=== PATIENT | female | born 1935 | race Caucasian/White ===

== ENCOUNTER 2017-02-09 21:21 | Inpatient (IN) | payer MEDICARE, BC ==
[~2017-02-09] VITALS: Ht 162.6 cm; Wt 61.4 kg
--- NOTE | ~2017-02-09 | CT71 ---
[facility] A Service of [facility] RADIOLOGY TEXT RESULTS PATIENT: OXANA DUNLAP LOCATION: [facility] 341- : 35 UNIT #: [id number] AGE: [address]: Carlos Enrique Aggarwal MD SEX: F ORDER DR: [id number] [facility]. [place], [place] [address] [id number] I MR#: [id number] #: [id number] NAME: OXANA DUNLAP : 1935 SEX: F STUDY DATE/TIME: 02/09/2017 23:28 UNIT: C3A PCU ROOM: 341 STUDY DESCRIPTION: CT Head Wo Contrast Attending Physician: Carlos Enrique Aggarwal M.D. Ordering Physician: Lobo Butler D.O. Primary Care Physician: Reji Muhammad M.D. MEDICAL IMAGING REPORT This report is preliminary unless electronic signature is present EXAM Head CT without. HISTORY Syncope, confusion and hypertension and headache. Symptom onset today. COMMENT Routine noncontrast head CT is reviewed. There is comparison from 03/31/2016. This CT exam was performed with one or more of the following radiation dose reduction techniques: automatic exposure control, adjustment of mA and/or kV according to patient size, and iterative reconstruction. There is no displaced calvarial fracture. The mastoid air cells are clear where visualized and there is only mild mucosal thickening in the paranasal sinuses. There is generalized atrophy. There is no extraaxial fluid collection or acute intracranial hemorrhage. There is moderate white matter low-attenuation most confluent in the periventricular white matter nonspecific, but probably due to small vessel disease. Prominent vascular calcifications at the base of the brain. Patient has had cataract surgery bilaterally. No acute cortical infarct is suspected, but if this is of clinical concern followup imaging is recommended preferably with MRI if the patient is a candidate. Findings not significantly changed from prior study. IMPRESSION 1. No acute intracranial abnormality suspected, but if there is clinical concern for acute CVA, followup imaging is recommended preferably with MRI. 2. Atrophy and probable sequelae of small vessel disease. [facility] A Service of [facility] RADIOLOGY TEXT RESULTS PATIENT: OXANA DUNLAP LOCATION: A 341-01 : 35 UNIT #: [id number] AGE: [address]: Carlos Enrique Aggarwal MD SEX: F ORDER DR: Dictated by... Jasmin Greenberg M.D. THIS IS AN ELECTRONICALLY VERIFIED REPORT Jasmin Greenberg M.D. at 02/10/2017 11:00 AM Irma TD: 02/10/2017 09:22 JOB #: [id number] MEDICAL IMAGING REPORT Page 1 of 1 COPY
--- NOTE | ~2017-02-09 | HP ---
Unit #: [id number] #: [id number] Patient: OXANA DUNLAP [id number] [facility]. [place], [place] [address] [id number] I MR#: [id number] NAME: OXANA DUNLAP ROOM: 341 Age: 81 Sex: F Admission Date: 02/10/2017 : 1935 Attending Physician: Priscilla Cornelius M.D. Primary Care Physician: Reji Muhammad M.D. HISTORY AND PHYSICAL CHIEF COMPLAINT Possible syncope with UTI and hypokalemia. HISTORY This pleasant 81-year-old female with CAD, hypertension, mild dementia, is admitted for possible syncope. The patient does not recall what occurred earlier. I'm told by the ER physician that patient lives alone, had a syncopal episode, she was able to press possibly her medical alert button for help. She was brought to this emergency department last evening with a blood pressure of 223/118, which has improved on its own. She denies chest pain or shortness of breath. Does note some occasional dysuria. Her urinalysis shows significant pyuria. Labs are also notable for potassium of 2.7. In the ER she was treated with 1 g of Rocephin and one run of potassium chloride. Denies complaints at present. PAST MEDICAL HISTORY 1. CAD, status post PCI and stent. Echo 2013 ejection fraction 50% to 55% with mild MR, impaired left ventricular relaxation. 2. Essential hypertension. 3. Hyperlipidemia. 4. Peptic ulcer disease requiring clip and biopsy 2013. 5. Anxiety. 6. GERD. 7. Mild dementia. 8. Cataract extraction. 9. Tonsillectomy. ALLERGIES No known drug allergies. HOME MEDICATIONS Namenda XR 28 mg daily; BuSpar 10 mg b.i.d.; Lopressor 50 mg b.i.d.; Zocor 20 mg daily; omeprazole 40 mg daily; Plavix 75 mg daily; Imdur 60 mg daily; Prinivil 40 mg daily; Aricept 10 mg daily; p.r.n. meclizine; and Ultram. FAMILY HISTORY Noncontributory given patient's age. SOCIAL HISTORY The patient lives alone. Stopped smoking about 7 years ago, no longer drinks alcohol. Unit #: [id number] #: [id number] Patient: OXANA DUNLAP REVIEW OF SYSTEMS Somewhat difficult to obtain as patient does not recall what occurred earlier. PHYSICAL EXAMINATION GENERAL: Very pleasant, young appearing, 81-year-old female currently in no acute distress. VITAL SIGNS: Temperature 96, pulse 67, respirations 18, initial blood pressure 223/118, which has improved. O2 saturation 90% on room air. HEENT: Eyes - PERRLA. Extraocular muscles are intact. Pharynx is benign. NECK: Supple without adenopathy or thyromegaly. CHEST: Clear. CARDIAC: Normal S1 and S2 without S3, S4 or murmur. ABDOMEN: Bowel sounds are present. No hepatosplenomegaly, tenderness, or masses. BACK: Without CVA tenderness. EXTREMITIES: Without clubbing, cyanosis or edema. Pedal pulses are diminished. NEUROLOGIC: Patient is awake, alert, and oriented to person. Knows that she is in the hospital. Does not know the year. Cranial nerves are intact. She has equal strength throughout and is able to sit up on her own. DIAGNOSTIC STUDIES ADMISSION LABS: Hematocrit is 35, normal white count, platelet count, and MCV. SMA 12 - glucose 116, potassium 2.7, magnesium 1.4, cardiac markers are negative. Urinalysis - positive leukocyte esterase, nitrates, protein with 10-25 white cells, 0-2 red cells, 4+ bacteria. IMAGING STUDIES: Head CT - atrophy, small vessel ischemic disease but no acute disease. CARDIOLOGY STUDIES: EKG - normal sinus rhythm rate 63, LVH. ASSESSMENT 1. Possible syncope. 2. Urinary tract infection. 3. Hypokalemia and hypomagnesemia. 4. Accelerated hypertension, which has improved without intervention in the ER. 5. CAD with normal LV function, status post PCI and stent. No complaints of chest pain. 6. Hyperlipidemia. 7. Peptic ulcer disease. 8. Mild dementia. PLANS 1. Antibiotics. 2. Replace potassium and magnesium. 3. SCDs for DVT prophylaxis. 4. Obtain orthostatics, Holter monitor and repeat cardiac enzymes. Dictated by Priscilla Cornelius M.D. Unit #: [id number] #: [id number] Patient: OXANA DUNLAP AML/ts TD: 02/10/2017 05:46 JOB #: [id number] HISTORY AND PHYSICAL Page 1 of 1 X Priscilla Cornelius MD HISTORY AND PHYSICAL
--- NOTE | ~2017-02-09 | EKG ---
PATIENT: OXANA DUNLAP UNIT #: [id number] Ventricular Rate: 63 BPM Atrial Rate: 63 BPM P-R Interval: 126 ms QRS Duration: 96 ms Q-T Interval: 454 ms QTC Calculation(Bezet): 464 ms P [place]: -28 degrees Calculated R [place]: -27 degrees Calculated T [place]: -17 degrees Diagnosis Line: Normal sinus rhythm Diagnosis Line: Left ventricular hypertrophy with repolarization Diagnosis Line: abnormality Diagnosis Line: Abnormal ECG Diagnosis Line: When compared with ECG of 31-MAR-2016 20:29, Diagnosis Line: ST now depressed in Inferior leads Diagnosis Line: Inverted T waves have replaced nonspecific T wave Diagnosis Line: abnormality in Inferior leads Diagnosis Line: Confirmed by GAEL MARRERO MD ([id number]) on Diagnosis Line: 02/11/2017 7:12:15 AM INTERPRETING : DEMAR
--- NOTE | ~2017-02-09 | DS ---
Unit #: [id number] #: [id number] Patient: OXANA DUNLAP [id number] [address] [id number] I MR#: [id number] NAME: OXANA DUNLAP ROOM: 341 Age: 81 Sex: F Admission Date: 02/10/2017 : 1935 Discharge Date: 02/11/2017 Attending Physician: Carlos Enrique Aggarwal M.D. Primary Care Physician: Reji Muhammad M.D. DISCHARGE SUMMARY PRIMARY DIAGNOSIS Syncope, question possible. SECONDARY DIAGNOSES 1. Urinary tract infection. 2. Hypokalemia. 3. Chronic kidney disease. 4. Coronary artery disease with normal ejection fraction. 5. Dyslipidemia. 6. Peripheral artery disease. 7. Mild dementia. 8. Hypertension. 9. Elevated per EMS but improved on arrival to the emergency room. 10. Hypomagnesemia. HOSPITAL COURSE The patient was placed in the hospital, had normal orthostatic vitals. Symptoms resolved quickly. Her potassium and magnesium came up with supplementation. Her creatinine ranged from 1.3 to 1.4, which is her baseline. She was treated for a urinary trace infection here with Rocephin and continuing at home with Omnicef. Cultures are pending. Patient did have a Holter monitor and those results are pending and can be followed up by her PCP as an outpatient in one to two weeks. DISCHARGE DISPOSITION To home. DISCHARGE STATUS Stable. DISCHARGE ACTIVITY Ad kamille . DISCHARGE DIET 2,000 mg sodium, heart healthy diet. DISCHARGE MEDICATIONS 1. Meclizine 1 tablet p.o. p.r.n. dizziness. 2. Buspirone 10 mg p.o. b.i.d. 3. Toprol XL 50 mg p.o. b.i.d. 4. Namenda XR 28 mg p.o. daily. 5. Aricept 10 mg p.o. daily. 6. Simvastatin 20 mg p.o. daily. 7. Lisinopril 40 mg p.o. daily. Unit #: [id number] #: [id number] Patient: OXANA DUNLAP 8. Tramadol resume home dose 1 tablet p.o. p.r.n. pain, resume home schedule. 9. Plavix 75 mg p.o. daily. 10. Omeprazole 40 mg p.o. daily. 11. Protonix 1 tablet p.o. daily, resume home dose. 12. Imdur ER 60 mg p.o. daily. 13. Omnicef 300 mg p.o. b.i.d. for the next five days. 14. Potassium chloride 40 mEq p.o. x1 to be taken on 02/12/2017. Dictated by... Carlos Enrique Aggarwal M.D. MARIA E/je TD: 02/12/2017 12:12 JOB #: [id number] DISCHARGE SUMMARY Page 1 of 1 X Carlos Enrique Aggarwal MD X DISCHARGE SUMMARY
--- NOTE | ~2017-02-09 | HM ---
Unit #: [id number] #: [id number] Patient: OXANA DUNLAP [id number] [facility]. [address] [address] [id number] I MR#: [id number] NAME: OXANA DUNLAP : 1935 SEX: F STUDY DATE/TIME: 02/11/2017 UNIT: C3A PCU ROOM: 341 STUDY DESCRIPTION: 24 hour Holter Attending Physician: Carlos Enrique Aggarwal M.D. Primary Care Physician: Reji Muhammad M.D. CARDIOLOGY REPORT REVISED REPORT EXAM 24-hour Holter. DATE APPLIED 02/10/17 DATE SCANNED 02/11/[address] Cornelius READ BY Dr. Sutherland REASON FOR THE STUDY Possible syncope. FINDINGS Underlying rhythm is normal sinus rhythm with an average heart rate of 60 beats per minute. Minimum heart rate of 49 beats per minute with a maximum heart rate of 97 beats per minute. The minimum heart rate of 49 beats per minute is noted at 3:18 a.m. The maximum heart rate of 97 beats per minute is noted at 4:13 p.m. The patient had a 1.73 second pause noted at 6:21 p.m. The patient had 22 single multifocal premature ventricular complex and one ventricular couplet noted. The patient had 84 single premature atrial complex, 4 atrial couplets noted. The patient had 3 to 4 beat run of paroxysmal supraventricular tachycardia with a heart rate of about 125 to 130 beats per minute. The patient recorded one symptom of dizziness while standing up which correlated with normal sinus rhythm. CONCLUSION 1. Underlying rhythm is normal sinus rhythm with an average heart rate of 50 beats per minute. Minimum heart rate of 49 beats per minute and a maximum heart rate of 97 beats per minute. 2. No sustained atrial or ventricular arrhythmias noted. 3. Longest pause noted was a 1.73 second pause noted at 6:21 p.m. 4. The patient had occasional single multifocal premature atrial complex and premature ventricular complex noted. 5. The patient had 3 to 4 beat run of paroxysmal supraventricular Unit #: [id number] #: [id number] Patient: OXANA DUNLAP tachycardia with heart rate ranging from 125 to 130 beats per minute. 6. The patient recorded symptom of dizziness while standing up which correlated with normal sinus rhythm. Dictated by..Pennie Prasad TD: 02/11/2017 13:23 JOB #: [id number] CC: [email or web address]/[email or web address] Please Delete CARDIOLOGY REPORT Page 1 of 1 X Lynne Sutherland MD <ELECTRONICALLY SIGNED> 04/08/17 1524 HOLTER MONITOR REPORT
[~2017-02-09 21:21] MED LIST: ACETAMINOPHEN PO; ACETAMINOPHEN500 M2 PO; AMBIEN PO; ARICEPT PO; BAYER CHEWABLE81 MG PO; BIAXIN PO; BUSPIRONE HCL10 M1 PO; CARAFATE1 G PO; CARAFATE1 GM; CIPRO250 MG PO; CLOPIDOGREL75 MG PO; DONEPEZIL HCL10 MG PO; FIORICET1 TAB PO; FLAGYL250 M1 PO; HYDROCHLOROTHIA25 MG PO; IMDUR-ER30 M2 PO; IMDUR-ER60 M1 PO; IMDUR-ER60 MG PO; IMODIUM2 MG PO; K-DUR20 ME1 PO; LEVAQUIN PO; LISINOPRIL10 MG PO; LOMOTIL TABLET1 TAB PO; LOPRESSOR PO; MULTI VITAMIN1 EACH PO; NAMENDA XR28 MG PO; NITROSTAT0.4 MG SL; OMEPRAZOLE40 M1 PO; PINK BISMUTH262 MG PO; PLAVIX PO; PRINIVIL40 MG PO; PROBIOTIC1 EAC1 PO; PROTONIX PO; SIMVASTATIN20 MG PO; TOPROL XL 50 MG50 MG PO; TOPROL XL50 MG PO; TYLENOL325 M1 PO; TYLENOL325 MG/10. PO; VITAMIN B12-FO1 EACH PO; VITAMIN B122500 MCG PO; VITAMIN E1000 UNI1 PO; ZANAFLEX2 MG PO; ZESTRIL40 MG PO
[2017-02-09] MEDS ORDERED: ARICEPT5 M1 PO (22:00)
[2017-02-09] MEDS ORDERED: PRINIVIL40 MG PO (22:00)
[2017-02-09] MEDS ORDERED: ANTIVERT PO (22:01)
[2017-02-09] MEDS ORDERED: PROTONIX (22:01)
[2017-02-09] MEDS ORDERED: ULTRAM PO (22:01)
[2017-02-09 22:52] LABS: URINE SOURCE CLEAN CATCH
[2017-02-09 22:59] LABS: URINE APPEARANCE CLEAR; URINE BILIRUBIN NEG (NEG); URINE BLOOD 1+ (NEG); URINE COLOR YELLOW; URINE GLUCOSE NEG (NEG); URINE KETONE NEG (NEG); URINE LEUKOCYTE ESTERASE TRACE (NEG); URINE NITRATE POS (NEG); URINE PH 5.5 (5-8); URINE PROTEIN 1+ (NEG); URINE SPECIFIC GRAVITY 1.013 (1.003-1.035); URINE UROBILINOGEN 0.2 MG/DL (NEG)
[2017-02-09 23:02] LABS: CULTURE INDICATED? YES; URBCS1 AUWI 0-2 /[HPF] (0-2); URINE BACTERIA AUWI 4+ (NEGATIVE); URINE SQUAMOUS EPITHELIAL CELL OCC /[HPF]
[2017-02-09 23:13] LABS: POC - CKMB 5.7 ng/mL (0.0-7.9); POC - TROPONIN <0.05 ng/mL (<=0.05)
[2017-02-09 23:21] LABS: BASOPHIL% 0.5 % (0-2.5); EOSINOPHIL% 0.3 % (0.0-7.0); HEMATOCRIT 35.2 % (35.0-45.0); HEMOGLOBIN 11.7 gm/dL (12.0-16.0); LYMPHOCYTE% 11.5 % (17.0-45.0); MEAN CELL VOLUME 87.2 FL (83-96); MEAN CORPUSCULAR HGB CONC 33.2 g/dL (30-36); MONOCYTE# 0.5 X10e3 (0-1.0); MONOCYTE% 5.6 % (3.0-12.0); NEUTROPHIL% 82.1 % (40-75); PLATELET COUNT 168 X10e3 (140-420); RED BLOOD COUNT 4.04 X10e (3.90-5.30); RED CELL DISTRIBUTION WIDTH 14.9 % (11.0-15.5); WHITE BLOOD COUNT 8.5 X10e3 (4.0-10.5)
[2017-02-09 23:24] LABS: DIFF IND NO
[2017-02-09 23:53] LABS: ALBUMIN SERUM 4.1 g/dL (3.5-5.0); BILIRUBIN, DIRECT 0.1 mg/dL (0.0-0.2); BILIRUBIN,INDIRECT 0.6 mg/dL (0.0-0.9); BILIRUBIN,TOTAL 0.7 mg/dL (0.2-2.0); BUN/CREATININE RATIO 16.92; CALCIUM SERUM 8.7 mg/dL (8.4-10.2); CREATININE SERUM 1.3 mg/dL (0.6-1.4); GLOM FILT RATE Estimated 38.4 mL/min (>60); PROTEIN TOTAL SERUM 6.9 g/dL (6.0-8.3)
[2017-02-09 23:57] LABS: POTASSIUM 2.7 mmol/L (3.5-5.1)
[2017-02-10 00:53] LABS: POC - CKMB 7.5 ng/mL (0.0-7.9); POC - TROPONIN <0.05 ng/mL (<=0.05)
[2017-02-10 07:25] LABS: BUN/CREATININE RATIO 13.84; CALCIUM SERUM 8.8 mg/dL (8.4-10.2); CREATININE SERUM 1.3 mg/dL (0.6-1.4); GLOM FILT RATE Estimated 38.4 mL/min (>60); MAGNESIUM 2.5 mg/dL (1.6-3.0); POTASSIUM 3.4 mmol/L (3.5-5.1)
[2017-02-10 07:30] LABS: BASOPHIL% 0.5 % (0-2.5); EOSINOPHIL% 0.4 % (0.0-7.0); HEMATOCRIT 35.3 % (35.0-45.0); HEMOGLOBIN 11.7 gm/dL (12.0-16.0); LYMPHOCYTE# 1.8 X10e3 (1.0-3.5); LYMPHOCYTE% 24.6 % (17.0-45.0); MEAN CELL VOLUME 88.5 FL (83-96); MEAN CORPUSCULAR HEMOGLOBIN 29.3 PG (28-34); MEAN CORPUSCULAR HGB CONC 33.1 g/dL (30-36); MONOCYTE# 0.6 X10e3 (0-1.0); MONOCYTE% 8.6 % (3.0-12.0); NEUTROPHIL# 4.9 X10e3 (1.5-7.1); NEUTROPHIL% 65.9 % (40-75); PLATELET COUNT 179 X10e3 (140-420); RED BLOOD COUNT 3.99 X10e (3.90-5.30); RED CELL DISTRIBUTION WIDTH 15.2 % (11.0-15.5); WHITE BLOOD COUNT 7.5 X10e3 (4.0-10.5)
[2017-02-10 07:41] LABS: DIFF IND NO
[2017-02-10 07:44] LABS: %MB 3.8 % (0.0-4.0); MB 12.7 ng/ml
[2017-02-11 05:21] LABS: BUN/CREATININE RATIO 13.57; CALCIUM SERUM 8.5 mg/dL (8.4-10.2); CREATININE SERUM 1.4 mg/dL (0.6-1.4); GLOM FILT RATE Estimated 35.1 mL/min (>60); MAGNESIUM 1.9 mg/dL (1.6-3.0); POTASSIUM 3.5 mmol/L (3.5-5.1)
[2017-02-11] MEDS ORDERED: OMNICEF300 MG PO (12:08)
[2017-02-11] MEDS ORDERED: KCL PO (12:08)
== END 2017-02-11 13:10 | disposition home or self-care (01) | DRG 690 ==
LOC: CED 21:21 → CEDOF 02-10 02:57 → C3A PCU 02-10 02:57
PROVIDERS: Emergency Medicine; Internal Medicine
DX: N39.0 Urinary tract infection, site not specified (principal); E87.1 Hypo-osmolality and hyponatremia; I73.9 Peripheral vascular disease, unspecified; F03.90 Unspecified dementia, unspecified severity, without behavioral disturbance, psychotic disturbance, mood disturbance, and anxiety; I47.1 Supraventricular tachycardia; R55 Syncope and collapse; E78.5 Hyperlipidemia, unspecified; I10 Essential (primary) hypertension; E83.42 Hypomagnesemia; Z98.49 Cataract extraction status, unspecified eye; E87.6 Hypokalemia
CPT/HCPCS: 36415; 70450; 80048; 80076; 81003; 82550; 82553; 83735; 84484; 85025; 87086; 87088; 87186; 93005; 93225; 93226; 96365; 96367; 97161; 97165; 99285; G8978-GP; G8979-GP; G8980-GP; G8987-GO; G8988-GO; G8989-GO; J0696; J2405; J3475